=== PATIENT | female | born 1940 | race Caucasian/White ===

== ENCOUNTER 2017-08-05 07:25 | Day surgery (SDC) | payer MEDICARE, OTHER ==
[2017-08-04 13:26] LABS: BASOPHILS 0.4 % (0-2); EOSINOPHILS 2.5 % (0-7); HEMATOCRIT 35.3 % (36.0-48.0); HEMOGLOBIN 11.2 g/dL (12-16); IMMATURE GRANULOCYTES 0.2 % (0-5); LYMPHOCYTES 31.3 % (15-50); MCH 27.2 pg (26.0-34.0); MCHC 31.7 g/dL (31.0-37.0); MCV 85.7 fL (80.0-100.0); MEAN PLATELET VOLUME 9.4 fL (7.4-10.4); MONOCYTES 10.4 % (2-11); NEUTROPHILS 55.2 % (40-80); PLATELET COUNT 212 10x3/uL (130-400); RBC 4.12 10x6/uL (4.00-5.40); RDW 14.6 % (11.5-14.5); WBC 5.7 10x3/uL (4.8-10.8)
[2017-08-04 13:35] LABS: APTT 23.3 SECONDS (22.8-39.4); INR 0.96 (0.85-1.17); PROTIME 12.4 SECONDS (11.6-15.0)
--- NOTE | ~2017-08-05 | OP ---
PATIENT NAME: KIA RODRIGUEZ MEDICAL RECORD: [id number] :40 LOCATION:D.OPS ADMISSION DATE: SURGEON: NABEEL HAMILTON DPM DATE OF OPERATION: 08/05/2017 PREOPERATIVE DIAGNOSES: 1. Hallux abductovalgus, right foot. 2. Instability, right first metatarsal cuneiform joint. 3. Hammertoe deformity, right 2, 3 and 4. POSTOPERATIVE DIAGNOSES: 1. Hallux abductovalgus, right foot. 2. Instability, right first metatarsal cuneiform joint. 3. Hammertoe deformity, right 2, 3 and 4. PROCEDURES: 1. Wright bunionectomy, right foot. 2. Right first met cuneiform joint fusion, right foot. 3. PIPJ fusion, right second. 4. PIPJ fusion, right third. 5. PIPJ fusion, right fourth digit. ANESTHESIA: General with local infiltrate utilizing lidocaine and Marcaine plain, 20 cc total, around the first, second, third and fourth rays. HEMOSTASIS: Right thigh tourniquet at 350 mmHg. PREOPERATIVE DETAILS: The patient was taken to the OR and placed on the operating table in a supine position. This was followed by induction of general anesthesia and infiltration of local anesthetic. The right lower extremity was then prepped and draped in usual aseptic technique followed by exsanguination and inflation of the tourniquet. PROCEDURE NUMBER ONE: Wright bunionectomy, right foot. A 15 blade was used to create an incision from the medial cuneiform dorsally down to the base of the proximal phalanx of the hallux. The incision was deepened down through subcutaneous tissue. An inverted L capsulotomy was performed in the first MPJ and the capsular flap was reflected and the head of the first metatarsal was delivered. A sagittal saw was used to resect the medial eminence. Attention was directed to the first interspace where a lateral release was performed. Good reduction of the lateral contracture was verified. PROCEDURE NUMBER 2: First met cuneiform joint fusion, right foot: Utilizing the skin incision as described in 1, dissection was carried down to the periosteum aborting the dorsal cutaneous nerves. Periosteal incision was made, freeing the first met cuneiform joint. A sagittal saw was used to resect the joint followed by temporary fixation noting good alignment. A 5-hole plate with one screw crossing the fusion site was placed utilizing fluoroscopy to verify good placement. There was excellent rigid internal fixation noted. Excellent alignment. The wound was flushed. The periosteum and joint capsule were reapproximated with 2-0 Vicryl. The subcutaneous tissue was repaired with 4-0 Rapide and the skin was closed with 4-0 Rapide in a subcuticular technique followed by Dermabond. PROCEDURE NUMBER 3: PIPJ fusion, right second digit: A 15-blade was used to OPERATIVE REPORT [id number] KIA RODRIGUEZ create 2 transverse incisions elliptical in nature on the dorsal aspect of the PIPJ. The skin wedge was removed. The extensor longus tendon was then transected and the head of the proximal phalanx and base of middle phalanx were exposed. A sagittal saw was used to resect both. A K-wire was placed for guide in the proximal phalanx followed by overdrill, same thing in the middle phalanx prepping for the bone graft. The bone graft was then placed in the deficit in the proximal phalanx first and then the capital fragment was placed on top of the bone graft and compressed noting excellent alignment as well as rigidity. The wound was flushed. The extensor longus tendon was repaired with 4-0 Rapide. The skin was closed with 4-0 Rapide in a simple interrupted technique followed by Dermabond. PROCEDURE NUMBER 4: PIPJ fusion, right third digit: Procedure was performed as described in #3 without variation and no complication. PROCEDURE NUMBER 5: PIPJ fusion, right fourth digit: Procedure was performed as described in #3 without variation and no complication. Adaptic, 4 x 4, and Conform were used to dress all the wounds followed by application of a modified Mckeon compression dressing. Tourniquet was deflated. POSTOPERATIVE DETAILS: The patient tolerated the procedure well and left the OR with vital signs stable and vascular status at preop levels. The patient was transported to recovery per anesthesia in stable condition. TRANSINT:[id number] Voice Confirmation ID: [id number] DOCUMENT ID: [id number] NABEEL HAMILTON DPM at 1210 CC: [id number] DICTATION DATE: 08/05/17958 TRACK MAINTAINER: 08/05/17 1202 [facility] [address] EUGEN[facility] [address]
[2017-08-05 07:20] VITALS: BP 141/79; BMI 22.6
[~2017-08-05 07:25] MED LIST: ACETAMINOPHEN325 MG PO; BAYER CHEWABLE81 MG PO; CALAN80 MG; IMITREX50 MG PO; MYRBETRIQ25 MG PO; PAXIL20 MG PO; PRILOSEC20 MG PO; TOPAMAX25 MG PO; ZINC50 MG PO
== END 2017-08-05 12:30 | disposition home or self-care (01) ==
LOC: D.OPS 07:25 → D.PAN 08:30 → D.OPS 08:30
PROVIDERS: Anesthesiology
DX: M20.11 Hallux valgus (acquired), right foot (principal); M25.374 Other instability, right foot; M20.41 Other hammer toe(s) (acquired), right foot

== ENCOUNTER → 2018-09-16 07:38 | Outpatient (CLI) | payer MEDICARE | END | disposition home or self-care (01) | LOC: D.CT 07:38 | DX: R10.31 Right lower quadrant pain (principal) ==

== ENCOUNTER 2019-03-03 09:15 | Day surgery (SDC) | payer MEDICARE ==
[2019-03-02 12:45] LABS: BASOPHILS 0.2 % (0-2); EOSINOPHILS 2.3 % (0-7); HEMATOCRIT 34.7 % (36.0-48.0); IMMATURE GRANULOCYTES 0.2 % (0-5); LYMPHOCYTES 32.5 % (15-50); MCH 26.1 pg (26.0-34.0); MCHC 31.7 g/dL (31.0-37.0); MCV 82.4 fL (80.0-100.0); MEAN PLATELET VOLUME 9.8 fL (7.4-10.4); MONOCYTES 8.3 % (2-11); NEUTROPHILS 56.5 % (40-80); PLATELET COUNT 209 10x3/uL (130-400); RBC 4.21 10x6/uL (4.00-5.40); RDW 15.5 % (11.5-14.5); WBC 5.6 10x3/uL (4.8-10.8)
[2019-03-02 12:58] LABS: ANION GAP 11.5 mmol/L (8-16); CALCIUM 8.7 mg/dL (8.5-10.1); POTASSIUM - SERUM 4.5 mmol/L (3.5-5.1)
[~2019-03-03] VITALS: Ht 165.1 cm; Wt 62.1 kg
[2019-03-03 10:28] VITALS: Ht 165.1 cm; Wt 62.1 kg
[2019-03-03] MEDS ORDERED: HYDROCODON-ACE1 EAC7 PO (16:25)
--- NOTE | 2019-03-03 17:16 | NUR ---
1703-REC'D FROM RR. DROWSY,EASILY AROUSED WITH VERBAL STIMULI.VSS.4 BANDAIDS TO ABD CDI. AT BEDSIDE.
--- NOTE | 2019-03-03 18:08 | NUR ---
1730-FULL LIQUID TRAY TO ROOM.VSS. DENIES COMPLAINTS. AT BEDSIDE,CL IN EASY REACH
--- NOTE | 2019-03-03 18:14 | NUR ---
1809-DISCHARGE CRITERIA MET. REMOVED IV WITH CATH INTACT,DISPOSED INTO SHARPS,COVERED SITE WITH BANDAID.VSS. BANDAIDS CDI. REVIEWED DISCHARGE INSTRUCTIONS WITH PT WITH SPOUSE AT BEDSIDE. VERBALIZED UNDERSTANDING WITHOUT QUESTIONS OR CONCERNS. ESCORTED OUT VIA W/C WITH TO DRIVE [employer]
--- NOTE | 2019-03-04 11:37 | OP ---
PATIENT NAME: KIA RODRIGUEZ MEDICAL RECORD: [id number] :40 LOCATION:D.OPS ADMISSION DATE: SURGEON: JUDD CRUZ MD DATE OF OPERATION: 03/03/2019 PREOPERATIVE DIAGNOSES: 1. Chronic right lower quadrant pain. 2. Arthritis. POSTOPERATIVE DIAGNOSES: 1. Chronic right lower quadrant pain. 2. Arthritis. PROCEDURE: Laparoscopic lysis of adhesions. SURGEON: Judd Cruz MD REPORT OF PROCEDURE: The patient's abdomen was prepped and draped in sterile fashion. A Veress needle was inserted in the left upper quadrant and the abdomen was insufflated. A 5-mm Visiport trocar was inserted in the right lower quadrant. Once inside, we could see the Veress needle and there was no sign of any injury to bowel or surrounding structures. A 5-mm trocar was placed in the left upper quadrant and another was placed in the suprapubic region. The patient had some adhesions just to the left of midline from an old upper abdominal incision. These were mainly of the omentum to the anterior abdominal wall, but there was a section of the stomach which was adherent to the anterior abdominal wall. This was all taken down using sharp dissection. Evaluation of the stomach showed no evidence of any perforation and no sign of any intraluminal injury. We then inspected the right lower quadrant where the patient was having chronic pain. There is no evidence of a hernia being present. There was a scant amount of adhesions present of the right colon to the anterior abdominal wall and these were taken down with electrocautery. The patient's appendix was visualized and had no sign of any inflammatory changes. We then ran the small bowel from the terminal ileum to the ligament of Treitz and it was easily mobile and had no signs of any masses or lesions. We then inspected the pelvis where the patient had a history of a vaginal hysterectomy with bilateral salpingo-oophorectomy. The patient's rectum had just a scant amount of adhesions, but none of which needed to be removed. The patient had no other masses, lesions, or signs of any significant intraabdominal processes. At this point, the patient's stomach was inspected one last time and again there was no sign of any injury present. At this point, the ports and insufflation were then removed. The wounds were infused with a total of 10 mL of 0.25% Marcaine with epinephrine and skin incisions were closed with subcutaneous 5-0 Monocryl. COMPLICATIONS: None. CONDITION: Stable. ANESTHESIA: General endotracheal and local. BLOOD LOSS: Minimal. TRANSINT:[id number] Voice Confirmation ID: [id number] DOCUMENT ID: [id number] OPERATIVE REPORT [id number] KIA RODRIGUEZ CHRISTIAN MD at 1137 CC: MERCEDES ROSS MD and GOMEZ EVANGELISTA [id number] DICTATION DATE: 03/03/19 1631 MUSIC COORDINATOR: 03/04/19 0159 [facility] [place] 03/03/19 [facility] [address] [place] [address]
== END 2019-03-03 18:10 | disposition home or self-care (01) ==
LOC: D.OPS 09:15 → D.PAN 11:30 → D.OPS 18:10
PROVIDERS: ATTEND Surgery
DX: R10.31 Right lower quadrant pain (principal); K66.0 Peritoneal adhesions (postprocedural) (postinfection)

== ENCOUNTER → 2019-05-04 08:58 | Outpatient (CLI) | payer MEDICARE ==
[2019-03-03 10:28] VITALS: BMI 22.8
[~2019-05-04 08:58] MED LIST changes: +HYDROCODON-ACE1 EAC7 PO
== END | disposition home or self-care (01) ==
LOC: D.CT 08:58
PROVIDERS: ATTEND Family Medicine
DX: R07.9 Chest pain, unspecified (principal)

== ENCOUNTER → 2019-11-01 09:40 | Outpatient (CLI) | payer MEDICARE ==
[2019-03-03 10:28] VITALS: BMI 22.8
== END | disposition home or self-care (01) ==
LOC: D.CT 10-04 10:00
PROVIDERS: ATTEND Internal Medicine Cardiovascular Disease
DX: R91.1 Solitary pulmonary nodule (principal); R59.9 Enlarged lymph nodes, unspecified